=== PATIENT | female | born 1990 | race Caucasian/White ===

== ENCOUNTER 2016-11-05 23:34 | Emergency (ER) | payer OTHER ==
[~2016-11-05 23:34] MED LIST: DOXY100T PO; IBUP600 PO; METH-703 PO; PERC5TAB12 PO
[2016-11-05 23:36] VITALS: BP 139/86; PULSE 98; RESP 18; TEMP 98.4; O2SAT 100
--- NOTE | 2016-11-06 00:16 | PD ---
HPI Chief Complaint Back pain Travel History International Travel<30 Days: No Contact w/Intl Traveler<30Days: No Known Affected Area: No History of Present Illness HPI at 31w presents with c/o back pain. Reports pain in upper mid back, non- radiating. Denies urinary/bowel problems. Denies abdominal pain/contractions. No LOF/VB. Good FM. Denies problems this . Reports an episode of emesis earlier tonight. Denies nausea currently. Tried one dose of Tylenol earlier this evening with some relief. Para: 1 : 3 Last Menstrual Period: Nov 06, 2016 History Past Medical History Medical History: Denies Significant Hx Obstetric History Obstetric History C/S x 1 SAB x 1 Past Surgical History Narrative Surgical C/S x 1 Family History Family History: Negative Social History Alcohol Use: No Tobacco Use: No Substance Abuse: No Allergies-Medications (Allergen,Severity, Reaction): Coded Allergies: Penicillin (Verified Allergy, Unknown, Rash, 03/04/15) Home Meds Active Scripts Doxycycline Hyclate 100 mg 100 Mg [id number] Mg PO BID #14 TAB Ref 0 Prov:Maria Elena Hicks MD 03/05/15 Methylergonovine Maleate (Methergine)0.2 Mg Tab0.2 Mg PO TID #9 TAB Ref 0 Prov:Maria Elena Hicks MD 03/05/15 Ibuprofen (Motrin 600 Mg Tab)600 Mg Vit493 Mg PO Q6H PRN (cramps) #28 TAB Ref 1 Prov:Maria Elena Hicks MD 03/05/15 Oxycodone-Acetaminophen 5-325 mg (Percocet 5-325 mg)Oxycodone 5/325 Acetaminophen Tab1-2 Tab PO Q4H PRN (PAIN) #20 TAB Prov:Cindy Grimm MD 03/04/15 Review of Systems Except as stated in HPI: all other systems reviewed are Neg Physical Exam Vital Signs Date Time Temp Pulse Resp B/P Pulse Ox O2 Delivery O2 Flow Rate FiO2 11/05/16 23:36 98.4 98 18 139/86 100 Narrative GENERAL: Well-nourished, well-developed patient. SKIN: Warm and dry. HEAD: Normocephalic and atraumatic. EYES: No scleral icterus. No injection or drainage. ENT: No nasal drainage noted. Mucous membranes pink. Airway patent. NECK: Supple, trachea midline. No JVD. CARDIOVASCULAR: Regular rate and rhythm without murmurs, gallops, or rubs. RESPIRATORY: Breath sounds equal bilaterally. No accessory muscle use. BREASTS: Bilateral exam showed no masses , no retractions, no nipple discharge. ABDOMEN/GI: Abdomen soft, non-tender, bowel sounds present, no rebound, no guarding Gravid to [-] weeks size Fundal Height: [-] GENITOURINARY: External Genitalia: intact and normal in appearance BUS glands: [-] Cervix: [-] Dilatation: [0] Effacement: [0] Station: [-3] Presentation: [-] Membranes: [intact or ruptured] Uterine Contractions: [none] FHT's: Category: [1] Baseline: [130s] Reactive: [yes] Variability: [moderate] Decels: [none] EXTREMITIES: No cyanosis or edema. BACK: Nontender without obvious deformity. No CVA tenderness. NEUROLOGICAL: Awake and alert. Motor and sensory grossly within normal limits. Five out of 5 muscle strength in all muscle groups. Normal speech. Data Data Vital Signs Reviewed: Yes Labs Laboratory Tests Test 11/06/16 00:10 Urine Color YELLOW Urine Turbidity HAZY Urine pH 8.0 Urine Specific [place] 1.014 Urine Protein TRACE mg/dL Urine Glucose (UA) NEG mg/dL Urine Ketones NEG mg/dL Urine Occult Blood NEG Urine Nitrite NEG Urine Bilirubin NEG Urine Urobilinogen 2.0 MG/DL Urine Leukocyte Esterase SMALL Urine RBC 2 /hpf Urine WBC 8 /hpf Urine Squamous Epithelial 10 /hpf Cells Urine Renal Epithelial Cells <1 /hpf Urine Amorphous Sediment RARE Urine Bacteria MANY /hpf Urine Hyaline Casts 1 /lpf Urine Mucus FEW /lpf Microscopic Urinalysis Comment CULTURE INDICATED MDM Interpretation(s) IUP at 31w with back pain. D/w patient Tylenol and supportive therapies. Close f/u with OB provider. Rx for Macrobid. Hydration encouraged. All questions answered. Diagnosis Diagnosis: Primary Impression: 31 weeks gestation of Additional Impressions: Back pain affecting in third trimester UTI (urinary tract infection) Disposition: DISCHARGE HOME Condition: Stable Anaid Zelaya MD Nov 06, 2016 00:16
[2016-11-06 01:16] LABS: BACTERIA, URINE MANY /hpf; BLOOD, URINE NEG (NEG); COMMENT (UR) CULTURE INDICATED; CULTURE IF INDICATED CULTURE INDICATED; GLUCOSE,URINE NEG (NEG); HYALINE CAST, URINE 1 /lpf (RARE); KETONE, URINE NEG (NEG); MUCUS URINE FEW /lpf (OCC); NITRITE,URINE NEG (NEG); RENAL EPITHELIAL CELLS <1 /hpf; SQUAMOUS EPITHELIAL CELL URINE 10 /hpf (0-5); URINE COLOR YELLOW (YELLW/STRAW)
[2016-11-06] MEDS ORDERED: MACR100C2 PO (01:25)
== END 2016-11-06 01:34 | disposition home or self-care (01) ==
LOC: HOBED 23:34
DX: O26.893 Other specified pregnancy related conditions, third trimester (principal); M54.6 Pain in thoracic spine; O23.43 Unspecified infection of urinary tract in pregnancy, third trimester; Z3A.31 31 weeks gestation of pregnancy
CPT/HCPCS: 81001; 87086; 99283

== ENCOUNTER 2016-12-12 11:17 | Inpatient (IN) | payer OTHER ==
[~2016-12-12] VITALS: Ht 165.1 cm; Wt 47.2 kg
[~2016-12-12 11:17] MED LIST changes: +MACR100C2 PO
[2016-12-30] VITALS (9 sets, daily range): BP systolic 112–142; BP diastolic 55–78; PULSE 78–96; RESP 14–18; TEMP 97.6–98.1; O2SAT 99–100
[2016-12-30] MEDS ORDERED: LACTATED RINGER'S 1000 ML INJ 1,000 ML IV ONE (07:09)
[2016-12-30] MEDS ORDERED: OXYTOCIN 10 UNIT/ML AMP ONE (07:15)
[2016-12-30 07:30] LABS: AUTOMATED NEUTROPHIL # 9.6 TH/MM3 (1.8-7.7); BASOPHIL % 0.3 % (0.0-2.0); EOSINOPHIL # 0.2 TH/MM3 (0-0.4); EOSINOPHIL % 1.4 % (0.0-4.0); HEMATOCRIT 35.8 % (35.0-46.0); HEMO FLAGS DIFF FINAL; LYMPH % 17.4 % (9.0-44.0); LYMPHOCYTE # 2.2 TH/MM3 (1.0-4.8); MEAN CORPUSCULAR HEMOGLOBIN 27.2 PG (27.0-34.0); MEAN CORPUSCULAR HGB CONC 33.6 % (32.0-36.0); MONO % 5.1 % (0.0-8.0); NEUT % 75.8 % (16.0-70.0); PLATELET COUNT 195 TH/MM3 (150-450); RED BLOOD COUNT 4.42 MIL/MM3 (4.00-5.30); WHITE BLOOD COUNT 12.7 TH/MM3 (4.0-11.0)
[2016-12-30] MEDS ORDERED: LACTATED RINGER'S 1000 ML INJ 1,000 ML IV SCH ×2 (07:39→14:00)
[2016-12-30 07:53] LABS: BACTERIA, URINE FEW /hpf; BLOOD, URINE MOD (NEG); COMMENT (UR) CULTURE INDICATED; CULTURE IF INDICATED CULTURE INDICATED; GLUCOSE,URINE NEG (NEG); HYALINE CAST, URINE 7 /lpf (RARE); KETONE, URINE NEG (NEG); MUCUS URINE FEW /lpf (OCC); NITRITE,URINE NEG (NEG); PH, URINE 6.5 (5.0-8.5); SQUAMOUS EPITHELIAL CELL URINE 40 /hpf (0-5); URINE COLOR YELLOW (YELLW/STRAW)
--- NOTE | 2016-12-30 08:02 | HHI.HP ---
HPI Chief Complaint repeat cd Date Seen: Dec 30, 2016 Travel History International Travel<30 Days: No Contact w/Intl Traveler<30Days: No Known Affected Area: No History of Present Illness HPI 26 yo with iup at 39 w 2 d here for elective repeat cd. + FM, irreg ctx , neg vb/lof. Prior cd for PROM, arrest of dilation; baby with possible gbs sepsis. Para: 1 : 1 Miscarriage: 1 History Past Medical History Narrative Medical denies Medical History: Denies Significant Hx Obstetric History Obstetric History 2011 CD at 39 wk for arrest, dilated to 2 cm 2014 MAB 13 wk Past Surgical History Narrative Surgical D&C LSC for [place], possible endo CD Family History Narrative Family History FOB spina bifida Social History Alcohol Use: No Tobacco Use: No (use prior to ) Substance Abuse: No Allergies-Medications (Allergen,Severity, Reaction): Coded Allergies: Penicillin (Verified Allergy, Unknown, Rash, 03/04/15) Retin-A (Verified Allergy, Unknown, swelling, 12/19/16) Home Meds Active Scripts Nitrofurantoin Monohydrate Macrocrystals (Macrobid)100 Mg [id number] Mg PO BID 7 Days Ref 0 Prov:Anaid Zelaya MD 11/06/16 Doxycycline Hyclate 100 mg 100 Mg Pmr000 Mg PO BID #14 TAB Ref 0 Prov:Maria Elena Hicks MD 03/05/15 Methylergonovine Maleate (Methergine)0.2 Mg Tab0.2 Mg PO TID #9 TAB Ref 0 Prov:Maria Elena Hicks MD 03/05/15 Ibuprofen (Motrin 600 Mg Tab)600 Mg Iih084 Mg PO Q6H PRN (cramps) #28 TAB Ref 1 Prov:Maria Elena Hicks MD 03/05/15 Oxycodone-Acetaminophen 5-325 mg (Percocet 5-325 mg)Oxycodone 5/325 Acetaminophen Tab1-2 Tab PO Q4H PRN (PAIN) #20 TAB Prov:Cindy Grimm MD 03/04/15 Review of Systems General / Constitutional: No: Fever, Weight Gain, Chills, Other Eyes: No: Diploplia, Blurred Vision, Visual changes, Pain, Photophobia HENT: No: Headaches, Vertigo, Lightheadedness Cardiovascular: No: Irregular Rhythm, Chest Pain or Discomfort, Palpitations, Tachycardia, Syncope, Varicosities, Edema, Cyanosis Respiratory: No: Cough, Short of Breath, Other Gastrointestinal: No: Nausea, Vomiting, Diarrhea Genitourinary: No: Decreased Urinary Output, Oliguria Musculoskeletal: No: Limited ROM, Weakness, Cramping, Edema, Pain Skin: No Rash, No Itching, No Dryness, No Lumps, No Change in Pigmentation, No Change in Nails, No Alopecia, No Lesions Neurologic: No: Weakness, Dizziness, Syncope, Focal Abnormalities, Coordination Problem, Headache, Slurred Speech, Seizures Psychiatric: No: Depression, Suicidal Ideations, Homicidal Ideation Endocrine: No: Heat Intolerance, Cold Intolerance, Polydipsia, Polyuria, Other Physical Exam Narrative GENERAL: Well-nourished, well-developed patient. SKIN: Warm and dry. HEAD: Normocephalic and atraumatic. EYES: No scleral icterus. No injection or drainage. ENT: No nasal drainage noted. Mucous membranes pink. Airway patent. NECK: Supple, trachea midline. No JVD. CARDIOVASCULAR: Regular rate and rhythm without murmurs, gallops, or rubs. RESPIRATORY: Breath sounds equal bilaterally. No accessory muscle use. ABDOMEN/GI: Abdomen soft, non-tender, bowel sounds present, no rebound, no guarding Gravid to40 weeks size Fundal Height: [-] GENITOURINARY: External Genitalia: intact and normal in appearance BUS glands: [-] Cervix:/hi Presentation:ceph Membranes: [intact Uterine Contractions: [-] FHT's: Category:I Decels: [-] EXTREMITIES: No cyanosis or edema. BACK: Nontender without obvious deformity. No CVA tenderness. NEUROLOGICAL: Awake and alert. Motor and sensory grossly within normal limits. Five out of 5 muscle strength in all muscle groups. Normal speech. Data Data Vital Signs Reviewed: Yes Orders Admit To Inpatient (12/30/16 ) Vital Signs (Adult) .ON ADMISSION (12/30/16 07:09) Activity Oob Ad Christen (12/30/16 07:09) Heart (12/30/16 07:09) Urinary Catheter Management TITO.Q8H (12/30/16 07:09) ^ Preps (12/30/16 07:09) Scd / Scott / Foot Pump TITO.QSHIFT (12/30/16 07:09) ^ Ultrasound For Locatio (12/30/16 07:09) Diet Npo (12/30/16 Breakfast) Lactated Ringer's 1000 Ml Inj (Lr 1000 M (12/30/16 07:09) Lactated Ringer's 1000 Ml Inj (Lr 1000 M (12/30/16 07:39) Cefazolin 2 Gm Premix (Ancef 2 Gm Premix (12/30/16 08:15) Citric Acid-Sodium Citrate Liq (Bicitra (12/30/16 08:45) Type And Screen (12/30/16 07:09) Complete Blood Count With Diff (12/30/16 07:09) Urinalysis - C+S If Indicated (12/30/16 07:09) Inpatient Certification (12/30/16 ) Specimen To Be Collected PRN (12/30/16 07:09) Oxytocin Inj (Pitocin Inj) (12/30/16 07:15) Labs Laboratory Tests Test 12/30/16 06:46 White Blood Count 12.7 Red Blood Count 4.42 Hemoglobin 12.0 Hematocrit 35.8 Mean Corpuscular Volume 81.0 Mean Corpuscular Hemoglobin 27.2 Mean Corpuscular Hemoglobin 33.6 Concent Red Cell Distribution Width 16.0 Platelet Count 195 Mean Platelet Volume 9.6 Neutrophils (%) (Auto) 75.8 Lymphocytes (%) (Auto) 17.4 Monocytes (%) (Auto) 5.1 Eosinophils (%) (Auto) 1.4 Basophils (%) (Auto) 0.3 Neutrophils # (Auto) 9.6 Lymphocytes # (Auto) 2.2 Monocytes # (Auto) 0.7 Eosinophils # (Auto) 0.2 Basophils # (Auto) 0.0 CBC Comment DIFF FINAL Differential Comment Assessment/Plan Problem List: (1) History of delivery Assessment and Plan 26 yo with iup 39w2d here for elective repeat cd RH neg- rhogam eval FOB with spina bifida- nl anatomy, msafp abn 1 hr- nl 3 hour GBS neg TMJ pain Etta Cam MD Dec 30, 2016 08:02
[2016-12-30] MEDS ORDERED: ceFAZolin 2 GM PREMIX 50 ML IV SCH (08:15)
[2016-12-30] MEDS ORDERED: CITRIC ACID-SODIUM CITRATE LIQ 30 ML UDC PO SCH (08:45)
--- NOTE | 2016-12-30 09:06 | HHI.DCPOC ---
Discharge Care Plan Diagnosis: (1) History of delivery Your Health Problems Are: delivery Report Symptoms to Your Doctor -Temperature above 100.5 degrees -Redness, of incision or excessive or foul smelling drainage -Unusual pain or calf pain -Increased vaginal bleeding -Painful or difficulty urinating -Feelings of extreme sadness or anxiety after 2 weeks Goals to Promote Your Health * To prevent worsening of your condition and complications * To maintain your health at the optimal level Directions to Meet Your Goals Take your medications as prescribed Follow your dietary instruction Follow activity as directed Ensure plenty of rest for recovery Drink fluids for hydration Keep your appointments as scheduled Take your immunizations and boosters as scheduled If your symptoms worsen call your PCP, if no PCP go to Urgent Care Center or Emergency Room Smoking is Dangerous to Your Health. Avoid second hand smoke Call the 24-hour crisis hotline for domestic abuse at Etta Cam MD Dec 30, 2016 09:05
--- NOTE | 2016-12-30 09:09 | PD.OB.DELI ---
Procedure Note Section Procedure Pre Op Diagnosis: (1) History of delivery (2) Rh negative status during (3) Abnormal glucose tolerance in mother complicating Post Op Diagnosis: (1) History of delivery (2) Rh negative status during (3) Abnormal glucose tolerance in mother complicating (4) Pelvic adhesive disease Performed by Etta Cam Procedure: Repeat Low Transverse Sec (lysis of adhesions) Indication for delivery: Desired elective repeat Informed consent obtained: For anesthesia, For procedure Confirmed correct: Patient, Procedure, Site, Time-out taken Anesthesia: Spinal Medication prior to procedure: As documented in eMAR, Antacids, Antibiotics, IV Monitoring during procedure: Blood pressure monitoring, Pulse oximetry Urinary catheter: Inserted using sterile technique, To dependent drainage, ml urine output (100) Sterile preparation: Duraprep, With drapes to expose affected area Position: Supine with wedge to right side, Supine with safety belt applied Operative Features Skin Incision: Pfannenstiel Uterine Incision: Low transverse w/knife / blunt ext Membranes Ruptured: Artificially, Appearance of fluid (clear) Presentation: Occiput anterior Delivery of infant: Uneventful Infant: Male One Minute : 8 Five Minute : 8 Weight: pending Status of : Viable, Cord blood, Nursery present (cpap required, baby taken to nicu) Placenta delivered: Intact Medications: Antibiotics, Oxytocin Estimated blood loss: 500ml Procedure tolerated: Well Maternal Condition: Stable Baby Complications: Hypoxia Condition: Fair Procedure in detail see dictation Etta Cam MD Dec 30, 2016 09:09
[2016-12-30] MEDS ORDERED: ONDANSETRON HCL 4 MG/2 ML VIAL IV PUSH PRN (09:15)
[2016-12-30] MEDS ORDERED: ONDANSETRON HCL 4 MG/2 ML VIAL ONE (09:15)
[2016-12-30] MEDS ORDERED: SODIUM CHLORIDE 0.9% FLUSH 10 ML FLUSH IV FLUSH PRN (09:15)
[2016-12-30] MEDS ORDERED: ACETAMINOPHEN 325 MG TAB PO PRN (09:15)
[2016-12-30] MEDS ORDERED: OXYTOCIN 30 UNITS-500ML PREMIX 500 ML IV ONE (09:15)
[2016-12-30] MEDS ORDERED: ACETAMINOPHEN 1000 MG/100 ML VIAL IV ONE ×2 (09:15→09:34)
[2016-12-30] MEDS ORDERED: oxyCODONE/ACETAMINOPHEN 5 MG/325 MG TAB PO PRN (09:15)
[2016-12-30] MEDS ORDERED: MORPHINE SULFATE PF 5 MG/10 ML VIAL ONE (09:15)
[2016-12-30] MEDS ORDERED: *Lactated Ringer's INJ 1,000 ML IV ONE (09:29)
[2016-12-30] MEDS ORDERED: OXYTOCIN 30 UNITS-500ML PREMIX 500 ML ONE (09:34)
[2016-12-30] MEDS ORDERED: EPIDURAL-DIPHENHYDRAMINE HCL 50 MG/ML VIAL IV PUSH PRN (11:15)
[2016-12-30] MEDS ORDERED: EPIDURAL-NO SYSTEMIC NARCOTICS PRN (11:15)
[2016-12-30] MEDS ORDERED: EPIDURAL-DO NOT ADMINISTER ANTICOAGULANTS PRN (11:15)
[2016-12-30] MEDS ORDERED: EPIDURAL-DIPHENHYDRAMINE HCL 50 MG CAP PO PRN (11:15)
[2016-12-30] MEDS ORDERED: EPIDURAL-NALOXONE HCL 0.4 MG/ML AMP IV PRN (11:15)
[2016-12-30] MEDS: IBUPROFEN 600 MG TAB PO PRN (14:19)
[2016-12-30] MEDS: oxyCODONE/ACETAMINOPHEN 5 MG/325 MG TAB PO PRN (17:55)
[2016-12-30] MEDS ORDERED: OXYTOCIN 30 UNITS-500ML PREMIX 500 ML IV PRN (19:15)
[2016-12-30] MEDS ORDERED: SODIUM CHLORIDE 0.9% FLUSH 10 ML FLUSH IV FLUSH SCH (21:00)
[2016-12-31 02:10] VITALS: BP 88/59; PULSE 84; RESP 18; TEMP 97.8
[2016-12-31] MEDS: oxyCODONE/ACETAMINOPHEN 5 MG/325 MG TAB PO PRN ×3 (02:13→20:41)
[2016-12-31] MEDS: IBUPROFEN 600 MG TAB PO PRN ×4 (02:14→20:42)
[2016-12-31 06:00] VITALS: BP 106/79; PULSE 96; RESP 18; TEMP 97.7
[2016-12-31] MEDS: SIMETHICONE 80 MG CHEWABLE TAB PO PRN ×2 (06:02→18:19)
[2016-12-31 06:43] LABS: AUTOMATED NEUTROPHIL # 11.3 TH/MM3 (1.8-7.7); BASOPHIL % 0.3 % (0.0-2.0); EOSINOPHIL # 0.1 TH/MM3 (0-0.4); EOSINOPHIL % 0.7 % (0.0-4.0); HEMATOCRIT 31.7 % (35.0-46.0); HEMO FLAGS DIFF FINAL; LYMPHOCYTE # 3.2 TH/MM3 (1.0-4.8); MEAN CORPUSCULAR HGB CONC 33.3 % (32.0-36.0); MONO % 4.8 % (0.0-8.0); NEUT % 73.2 % (16.0-70.0); PLATELET COUNT 207 TH/MM3 (150-450); RED BLOOD COUNT 3.92 MIL/MM3 (4.00-5.30); WHITE BLOOD COUNT 15.4 TH/MM3 (4.0-11.0)
[2016-12-31 08:10] VITALS: BP 114/76; PULSE 90; RESP 18; TEMP 97.9
[2016-12-31] MEDS: DOCUSATE SODIUM 50 MG/SENNA 8.6 MG TAB PO PRN ×2 (08:24→20:39)
--- NOTE | 2016-12-31 08:34 | HHI.OB ---
Subjective Post Operative Day: 1 Remarks doing well post op day 1 ambulating Objective Vitals/I&O Vital Signs Date Time Temp Pulse Resp B/P Pulse Ox O2 Delivery O2 Flow Rate FiO2 12/31/16 06:00 97.7 96 18 106/79 12/31/16 02:10 97.8 84 18 88/59 12/30/16 20:05 97.8 96 18 114/76 12/30/16 15:10 95 16 128/78 12/30/16 15:10 98.1 12/30/16 11:10 97.6 78 18 142/76 12/30/16 10:00 16 100 12/30/16 10:00 84 118/59 12/30/16 09:57 97.8 12/30/16 09:55 99 12/30/16 09:55 80 14 12/30/16 09:45 116/55 12/30/16 09:30 81 16 112/58 100 12/30/16 09:16 97.9 84 15 112/61 12/30/16 09:16 99 Result Diagram: 12/31/16 0615 Objective Remarks GENERAL: Well-nourished, well-developed patient. CARDIOVASCULAR: Regular rate and rhythm without murmurs, gallops, or rubs. RESPIRATORY: Breath sounds equal bilaterally. No accessory muscle use. ABDOMEN/GI: Abdomen soft, non-tender, bowel sounds present. Incision: Clean, dry and intact. Fundus: Firm, non-tender at umbilicus. GENITOURINARY: Light to moderate bleeding. EXTREMITIES: No cyanosis or edema, non-tender, without signs of DVT. Medications and IVs Current Medications Medications (Trade) Dose Ordered Sig/Mila Route Start Time Stop Time Status Last Admin (Lr 1000 ml Inj) 1,000 ml @ 100 mls/hr Q10H IV 12/30/16 14:00 12/31/16 09:59 (NS Flush) 2 ml BID IV FLUSH 12/30/16 21:00 (NS Flush) 2 ml UNSCH PRN IV FLUSH 12/30/16 09:15 (Mylicon Chew) 80 mg QID PRN PO 12/30/16 09:15 12/31/16 06:02 (Tylenol) 650 mg Q6H PRN PO 12/30/16 09:15 (Motrin) 600 mg Q6H PRN PO 12/30/16 09:15 12/31/16 08:24 (Percocet 5-325 Mg) 1 tab Q4H PRN PO 12/30/16 09:15 (Percocet 5-325 Mg) 2 tab Q4H PRN PO 12/30/16 09:15 12/31/16 08:23 (Nolvia-Colace) 2 tab Q12H PRN PO 12/30/16 09:15 12/31/16 08:24 (M-M-R Ii Inj) 0.5 ml ONCE ONCE SQ 12/31/16 16:00 12/31/16 16:01 (Boostrix Inj) 0.5 ml ONCE ONCE IM 12/31/16 16:00 12/31/16 16:01 (Zofran Inj) 4 mg Q6H PRN IV PUSH 12/30/16 09:15 Miscellaneous Information NO SYSTEMIC NARCOTICS TO BE GIVEN FO... UNSCH PRN .XX 12/30/16 11:15 12/31/16 11:14 (Narcan Inj) 0.4 mg UNSCH PRN IV 12/30/16 11:15 12/31/16 11:14 (Benadryl Inj) 25 mg Q6H PRN IV PUSH 12/30/16 11:15 12/31/16 11:14 (Benadryl) 50 mg Q6H PRN PO 12/30/16 11:15 12/31/16 11:14 Miscellaneous Information ALL NURSING DEPARTMENTS UNSCH PRN .XX 12/30/16 11:15 12/31/16 11:14 Assessment/Plan Problem List: (1) History of delivery Assessment and Plan unremarkable POD 1 nursing Rh - Janki Shearer MD Dec 31, 2016 08:34
[2016-12-31] MEDS ORDERED: diphenhydrAMINE HCL 50 MG CAP PO PRN (14:15)
[2016-12-31] MEDS ORDERED: MEASLES, MUMPS, RUBELLA VACCINE 0.5 ML VIAL SQ ONE (16:00)
[2016-12-31] MEDS ORDERED: DIPHTH/TETANUS/ACEL PERTUSSIS (BOOSTER) 0.5 ML VIAL/PFS IM ONE (16:00)
[2016-12-31 20:25] VITALS: BP 109/71; PULSE 81; RESP 18; TEMP 98.8
[2017-01-01] MEDS: IBUPROFEN 600 MG TAB PO PRN ×3 (05:09→17:21)
[2017-01-01] MEDS: SIMETHICONE 80 MG CHEWABLE TAB PO PRN (05:10)
[2017-01-01] MEDS: oxyCODONE/ACETAMINOPHEN 5 MG/325 MG TAB PO PRN ×4 (05:10→20:23)
[2017-01-01 07:20] VITALS: BP 133/80; PULSE 98; RESP 20; TEMP 98
--- NOTE | 2017-01-01 07:47 | HHI.OB ---
Subjective Post Operative Day: 2 Remarks POD#2; stable, pain managed with percocet Objective Vitals/I&O Vital Signs Date Time Temp Pulse Resp B/P Pulse Ox O2 Delivery O2 Flow Rate FiO2 01/01/17 06:09 20 01/01/17 06:09 20 12/31/16 20:25 98.8 81 18 109/71 12/31/16 08:10 97.9 90 18 114/76 Result Diagram: 12/31/16 0615 Objective Remarks GENERAL: Well-nourished, well-developed patient. CARDIOVASCULAR: Regular rate and rhythm without murmurs, gallops, or rubs. RESPIRATORY: Breath sounds equal bilaterally. No accessory muscle use. ABDOMEN/GI: Abdomen soft, non-tender, bowel sounds present. Incision: Clean, dry and intact. Fundus: Firm, non-tender at umbilicus. GENITOURINARY: Light to moderate bleeding. EXTREMITIES: No cyanosis or edema, non-tender, without signs of DVT. Medications and IVs Current Medications Medications (Trade) Dose Ordered Sig/Mila Route Start Time Stop Time Status Last Admin (NS Flush) 2 ml BID IV FLUSH 12/30/16 21:00 (NS Flush) 2 ml UNSCH PRN IV FLUSH 12/30/16 09:15 (Mylicon Chew) 80 mg QID PRN PO 12/30/16 09:15 01/01/17 05:10 (Tylenol) 650 mg Q6H PRN PO 12/30/16 09:15 (Motrin) 600 mg Q6H PRN PO 12/30/16 09:15 01/01/17 05:09 (Percocet 5-325 Mg) 1 tab Q4H PRN PO 12/30/16 09:15 12/31/16 14:39 (Percocet 5-325 Mg) 2 tab Q4H PRN PO 12/30/16 09:15 01/01/17 05:10 (Nolvia-Colace) 2 tab Q12H PRN PO 12/30/16 09:15 12/31/16 20:39 (Zofran Inj) 4 mg Q6H PRN IV PUSH 12/30/16 09:15 (Benadryl) 50 mg Q4H PRN PO 12/31/16 14:15 12/31/16 14:39 Assessment/Plan Problem List: (1) History of delivery Assessment and Plan unremarkable POD 2 Stable, bottle feeding, anticipate discharge for AM [facility] - Attending Attestation Seen by Golden Hercules MD Jan 01, 2017 07:47
--- NOTE | 2017-01-01 10:22 | MP ---
cc: ETTA CAM MD DATE OF SURGERY 12/30/2016 PREOPERATIVE DIAGNOSIS History of delivery, Rh negative, abnormal glucose tolerance. DIAGNOSIS History of delivery, Rh negative, abnormal glucose tolerance, plus pelvic adhesive disease. SURGEON Etta Cam MD HEALTH INFORMATION ASSISTANT [place] staff PROCEDURE PERFORMED Repeat low transverse section and lysis of adhesions. INDICATION The patient is a 26-year-old G3, P 1-0-1-1 with an intrauterine at 39 weeks and two days who desires elective repeat delivery. Her prior was due to the problem of failure to dilate and that had a prolonged stay in the NICU for GBS sepsis. The risks, benefits and alternatives discussed with the patient. Given an opportunity to have , but declined. ANESTHESIA Spinal ANTIBIOTICS Ancef 2 grams IV given pre-incision. PROPHYLAXIS DVT prophylaxis SCD's bilateral extremities COMPLICATIONS None COUNTS Correct x3 ESTIMATED BLOOD LOSS 500 mL URINE OUTPUT 100 mL of clear yellow urine INTRAOPERATIVE FINDINGS Viable male infant 's of 8 and 8. nursery team present for delivery, had a required C-PAP and was to taken to taken to the NICU for decreased oxygen saturation, weight pending. Maternal findings, normal uterus and bilateral ovaries. Left tube within normal limits. Right tube some filmy adhesions between the ovary and the fallopian tube. Filmy adhesions on the anterior aspect of the uterus to the bladder. Omental wall adhesions to the anterior abdominal wall. Scarring of the fascia to the rectus muscles. Scarring of the subcutaneous tissue. Placenta was delivered intact and handed to the placenta donation program. PROCEDURE IN DETAIL After she gave informed consent, the patient was taken to operating room where spinal anesthesia was administered without complication. She was placed in the dorsal supine position with a slight leftward tilt. The Chavez was placed under sterile conditions. SCD's were placed. The abdomen was prepped and draped in normal sterile fashion. After anesthesia was confirmed to be adequate, a Pfannenstiel skin incision was made at her prior incision site with a scalpel and taken down to the underlying layer of fascia with the Bovie. There was some scarring of the subcutaneous tissue and fascia. The fascia was dissected in the midline with the Bovie. The incision was extended bilaterally with Porter scissors. The superior aspect of the fascia was grasped with Vanda clamps. The rectus muscles were from the fascia with the aid of Porter scissors, the Bovie and bluntly. The same was repeated inferiorly. The rectus muscles were in the midline with hemostats. The peritoneum and some of the omentum were adhesed to the anterior abdominal wall. There was a loop of omentum in the operative field. This was double clamped, suture ligated and transected with the Bovie to free the omentum. There were several layers of filmy adhesions on the uterus, these were taken down with Metzenbaum scissors. The bladder blade was then inserted. A bladder flap was created with Metzenbaum scissors. The uterus was incised in a transverse fashion with a scalpel. This incision was extended bluntly. The amnion was artificially ruptured, the head was flexed and the large amount of amniotic fluid. Fundal pressure was used to deliver the head. The rest of body readily followed. The baby was bulb suctioned and cord was doubly clamped and cut. The baby was handed off to the awaiting pediatricians. Immediate infusion of Pitocin was started. The placenta was delivered using gentle uterine massage and cord traction. Membranes, clots and debris were cleared from the uterus with moist laparotomy sponges after the uterus was exteriorized. The uterus was repaired in two layers, first with a #1 chromic in a running locked fashion. The second layer was an imbricating layer. The uterus was noted to be hemostatic. The posterior cul-de-sac was irrigated and suctioned. A few adhesions of the right tube and ovary were taken down with a Bovie. These were noted To be hemostatic. The uterus was returned to the abdomen. The anterior cul-de-sac was irrigated and suctioned. There was no clear peritoneal edge to reapproximate as the omentum was scarred to it laterally. There was a small bleeding vessel on the left rectus muscles. A [id number] with 2-0 chromic was used to ensure hemostasis. The fascia was then closed with #1 Vicryl in a running fashion. The subcutaneous tissue was irrigated and hemostasis was obtained with the Bovie. The subcutaneous layer was closed with 2-0 chromic in a running fashion. Skin was closed with 3-0 Monocryl in a subcuticular fashion. A sterile dressing was placed. The patient tolerated the procedure well. Baby was taken to the NICU. Etta Cam MD PE/LIANG /9:10 AM 10:01 AM
[2017-01-02] MEDS: IBUPROFEN 600 MG TAB PO PRN ×2 (00:37→06:31)
[2017-01-02] MEDS: oxyCODONE/ACETAMINOPHEN 5 MG/325 MG TAB PO PRN ×2 (00:37→06:32)
--- NOTE | 2017-01-02 08:01 | HHI.OB ---
Subjective Post Operative Day: 3 Remarks no complaints, bottlefeeding Objective Vitals/I&O vss afeb Result Diagram: 12/31/16 0615 Objective Remarks GENERAL: Well-nourished, well-developed patient. CARDIOVASCULAR: Regular rate and rhythm without murmurs, gallops, or rubs. RESPIRATORY: Breath sounds equal bilaterally. No accessory muscle use. ABDOMEN/GI: Abdomen soft, non-tender, bowel sounds present. Incision: Clean, dry and intact. Fundus: Firm, non-tender at umbilicus. GENITOURINARY: Light to moderate bleeding. EXTREMITIES: No cyanosis, some edema, non-tender, without signs of DVT. Medications and IVs Current Medications Medications (Trade) Dose Ordered Sig/Mila Route Start Time Stop Time Status Last Admin (NS Flush) 2 ml BID IV FLUSH 12/30/16 21:00 (NS Flush) 2 ml UNSCH PRN IV FLUSH 12/30/16 09:15 (Mylicon Chew) 80 mg QID PRN PO 12/30/16 09:15 01/01/17 05:10 (Tylenol) 650 mg Q6H PRN PO 12/30/16 09:15 (Motrin) 600 mg Q6H PRN PO 12/30/16 09:15 01/02/17 06:31 (Percocet 5-325 Mg) 1 tab Q4H PRN PO 12/30/16 09:15 12/31/16 14:39 (Percocet 5-325 Mg) 2 tab Q4H PRN PO 12/30/16 09:15 01/02/17 06:32 (Nolvia-Colace) 2 tab Q12H PRN PO 12/30/16 09:15 12/31/16 20:39 (Zofran Inj) 4 mg Q6H PRN IV PUSH 12/30/16 09:15 (Benadryl) 50 mg Q4H PRN PO 12/31/16 14:15 12/31/16 14:39 Assessment/Plan Problem List: (1) History of delivery Assessment and Plan unremarkable POD 3 Stable, bottle feeding, anticipate discharge for today Rh - Discharge Planning routine Attending Attestation pt seen by Milana Hannah MD Jan 02, 2017 08:00
[2017-01-02] MEDS ORDERED: OXYC1TAB63 PO (08:03)
[2017-01-02] MEDS ORDERED: IBUP-232 PO (08:03)
== END 2017-01-02 11:06 | disposition home or self-care (01) | DRG 766 ==
LOC: H2EB 12-30 05:59 → H1EA 12-30 08:13
PROVIDERS: ADMIT Obstetrics & Gynecology; ATTEND Obstetrics & Gynecology
PROC: 10D00Z1 Extraction of Products of Conception, Low, Open Approach (ICD-10-PCS; principal; 2016-12-30)
PROC: 0DNS0ZZ (ICD-10-PCS; 2016-12-30)
DX: O34.219 Maternal care for unspecified type scar from previous cesarean delivery (principal); O99.810 Abnormal glucose complicating pregnancy; N73.6 Female pelvic peritoneal adhesions (postinfective); R73.02 Impaired glucose tolerance (oral); O99.89 Other specified diseases and conditions complicating pregnancy, childbirth and the puerperium; O26.893 Other specified pregnancy related conditions, third trimester; Z67.91 Unspecified blood type, Rh negative; Z3A.39 39 weeks gestation of pregnancy; Z37.0 Single live birth
CPT/HCPCS: 59025; 81001; 85025; 85461; 86850; 86900; 86901; 87086; 90384; 90715; J0131; J0690; J2274; J2405; J2590; J2790; J7120; Q0163

== ENCOUNTER 2016-12-19 09:28 | Emergency (ER) | payer OTHER ==
[~2016-12-19] VITALS: Ht 165.1 cm; Wt 102.5 kg
--- NOTE | 2016-12-19 10:15 | PD ---
HPI Chief Complaint Possibly leaking fluid per vagina, and sari the last 3 days Date Seen: Dec 19, 2016 Travel History International Travel<30 Days: No Contact w/Intl Traveler<30Days: No Known Affected Area: No History of Present Illness HPI The patient is 26-year-old white female previous at [address] Cam for care. She presents combining of leakage of fluid and her amnio sure is negative today. She is sari every 3-4 minutes and has been for the last 3 days. 2 heart rate tracing is reactive and contractions are noted on the monitor. Para: 1 : 3 History Obstetric History Obstetric History 1 Past Surgical History Narrative Surgical 1 Social History Alcohol Use: No Tobacco Use: No Substance Abuse: No Allergies-Medications (Allergen,Severity, Reaction): Coded Allergies: Penicillin (Verified Allergy, Unknown, Rash, 03/04/15) Home Meds Active Scripts Nitrofurantoin Monohydrate Macrocrystals (Macrobid)100 Mg [id number] Mg PO BID 7 Days Ref 0 Prov:Anaid Zelaya MD 11/06/16 Doxycycline Hyclate 100 mg 100 Mg Geq535 Mg PO BID #14 TAB Ref 0 Prov:Maria Elena Hicks MD 03/05/15 Methylergonovine Maleate (Methergine)0.2 Mg Tab0.2 Mg PO TID #9 TAB Ref 0 Prov:Maria Elena Hicks MD 03/05/15 Ibuprofen (Motrin 600 Mg Tab)600 Mg Tbl130 Mg PO Q6H PRN (cramps) #28 TAB Ref 1 Prov:Maria Elena Hicks MD 03/05/15 Oxycodone-Acetaminophen 5-325 mg (Percocet 5-325 mg)Oxycodone 5/325 Acetaminophen Tab1-2 Tab PO Q4H PRN (PAIN) #20 TAB Prov:Cindy Grimm MD 03/04/15 Review of Systems General / Constitutional: No: Fever, Weight Gain, Chills, Other Eyes: No: Diploplia, Blurred Vision, Visual changes, Pain, Photophobia HENT: No: Headaches, Vertigo, Lightheadedness Cardiovascular: No: Irregular Rhythm, Chest Pain or Discomfort, Palpitations, Tachycardia, Syncope, Varicosities, Edema, Cyanosis Respiratory: No: Cough, Short of Breath, Other Gastrointestinal: No: Nausea, Vomiting, Diarrhea Genitourinary: No: Decreased Urinary Output, Oliguria Musculoskeletal: No: Limited ROM, Weakness, Cramping, Edema, Pain Skin: No Rash, No Itching, No Dryness, No Lumps, No Change in Pigmentation, No Change in Nails, No Alopecia, No Lesions Neurologic: No: Weakness, Dizziness, Syncope, Focal Abnormalities, Coordination Problem, Headache, Slurred Speech, Seizures Psychiatric: No: Depression, Suicidal Ideations, Homicidal Ideation Endocrine: No: Heat Intolerance, Cold Intolerance, Polydipsia, Polyuria, Other Physical Exam Narrative GENERAL: Well-nourished, well-developed patient. SKIN: Warm and dry. HEAD: Normocephalic and atraumatic. EYES: No scleral icterus. No injection or drainage. ENT: No nasal drainage noted. Mucous membranes pink. Airway patent. NECK: Supple, trachea midline. No JVD. CARDIOVASCULAR: Regular rate and rhythm without murmurs, gallops, or rubs. RESPIRATORY: Breath sounds equal bilaterally. No accessory muscle use. BREASTS: Bilateral exam showed no masses , no retractions, no nipple discharge. ABDOMEN/GI: Abdomen soft, non-tender, bowel sounds present, no rebound, no guarding Gravid to [37-] weeks size Fundal Height: [37-] GENITOURINARY: External Genitalia: intact and normal in appearance BUS glands: [-] Cervix: [Closed-] Dilatation: [Closed-] Effacement: [-] 40% Station: [-3] Presentation: [-vtx] Membranes: [intact ] amnio sure negative Uterine Contractions: [-Every 3-4 minutes] FHT's: Category: [1-] Baseline: [133-] Reactive: [-yes] Variability: [mod-] Decels: [-none] EXTREMITIES: No cyanosis or edema. BACK: Nontender without obvious deformity. No CVA tenderness. NEUROLOGICAL: Awake and alert. Motor and sensory grossly within normal limits. Five out of 5 muscle strength in all muscle groups. Normal speech. Data Data Labs Amnio sure negative MDM Interpretation(s) Patient is 26-year-old white female at 37 weeks previous who sees the [facility] for care. Presents planning of leakage of fluid but her amnio sure was negative, contractions noted every 3-4 minutes but states she feels them is been doing this for 3 days. She was to have a repeat C -section scheduled in the near future. She is scheduled to see her doctor in the morning at 8:30 , heart rate tracing is reactive contractions are noted but her cervix is closed 40% effaced -3 Plan Plan the patient to have increased rest today return for worsening symptoms and otherwise see her doctor in the morning as scheduled Diagnosis Diagnosis: Primary Impression: No leakage of amniotic fluid into vagina Additional Impression: [place] contractions Disposition: DISCHARGE HOME Condition: Stable Kobe Ferrari II, MD Dec 19, 2016 10:15
== END 2016-12-19 10:21 | disposition home or self-care (01) ==
LOC: HOBED 09:28
DX: O47.1 False labor at or after 37 completed weeks of gestation (principal); Z3A.37 37 weeks gestation of pregnancy; Z79.899 Other long term (current) drug therapy; Z88.0 Allergy status to penicillin
CPT/HCPCS: 84112; 99284

== ENCOUNTER 2017-01-21 02:34 | Emergency (ER) | payer OTHER ==
[~2017-01-21 02:34] MED LIST changes: +IBUP-232 PO; +OXYC1TAB63 PO
[2017-01-21 02:40] VITALS: BP 185/87; PULSE 73; RESP 20; TEMP 97.4; O2SAT 99
[2017-01-21 03:00] VITALS: BP 130/81; PULSE 84; RESP 20; TEMP 98.7; O2SAT 100
[2017-01-21 03:25] VITALS: O2SAT 99
--- NOTE | 2017-01-21 03:27 | PD ---
HPI Chief Complaint: Abdominal Pain Time Seen by Provider: 03:05 Travel History International Travel<30 days: No Contact w/Intl Traveler<30days: No Traveled to known affect area: No History of Present Illness HPI 26yo F presents to the ED with c/o right upper abdominal pain that radiates to right scapula and right lower back as well. States it has been intermittent since September but last episode was on Friday. Today at 1:45am, she started having the pain again and vomited her percocet. Denies any fever, chest pain, sob, dysuria, vaginal discharge. Pt had 3 weeks ago. PFSH Past Medical History Hx Anticoagulant Therapy: No Anxiety: Yes Depression: Yes Cardiovascular Problems: No Chemotherapy: No Cerebrovascular Accident: No Diabetes: No Diminished Hearing: No Musculoskeletal: Yes (TMJ) Respiratory: No Immunizations Current: No Influenza Vaccination: No ?: Not LMP: mar 2016 3 weeks post : 3 Para: 2 Miscarriage: 1 Past Surgical History Section: Yes Hysterectomy: No Oral Surgery: Yes (TMJ) Social History Alcohol Use: No Tobacco Use: No Substance Use: No Allergies-Medications (Allergen,Severity, Reaction): Coded Allergies: penicillin G (Unverified Allergy, Unknown, Rash, 01/21/17) tretinoin (Unverified Allergy, Unknown, swelling, 01/21/17) Reported Meds & Prescriptions Reported Meds & Active Scripts Active Zofran Odt (Ondansetron Odt) 4 Mg Tab 4 Mg SL Q12HR PRN Oxycodone-Acetaminophen 5-325 mg Tab 1-2 Tab PO Q6HR PRN Ibuprofen 600 Mg Tab 600 Mg PO Q6H PRN Review of Systems Except as stated in HPI: all other systems reviewed are Neg Physical Exam Narrative GENERAL: 26yo F in mild distress. SKIN: Focused skin assessment warm/dry. HEAD: Atraumatic. Normocephalic. CARDIOVASCULAR: Regular rate and rhythm. No murmur appreciated. RESPIRATORY: No accessory muscle use. Clear to auscultation. Breath sounds equal bilaterally. GASTROINTESTINAL: Abdomen soft, +TTP RUQ. +Otis sign. scar in lower abdomen appears c/d/i. No lower abdominal pain. MUSCULOSKELETAL: No obvious deformities. No clubbing. No cyanosis. No edema. NEUROLOGICAL: Awake and alert. No obvious cranial nerve deficits. Motor grossly within normal limits. Normal speech. PSYCHIATRIC: Appropriate mood and affect; insight and judgment normal. Data Data Last Documented VS Vital Signs Date Time Temp Pulse Resp B/P (MAP) Pulse Ox O2 Delivery O2 Flow Rate FiO2 01/21/17 03:25 99 Room Air 01/21/17 02:40 97.4 73 20 Orders Orders Basic Metabolic Panel (Bmp) (01/21/17 03:23) Complete Blood Count With Diff (01/21/17 03:23) Lipase (01/21/17 03:23) Prothrombin Time / Inr (Pt) (01/21/17 03:23) Act Partial Throm Time (Ptt) (01/21/17 03:23) Urinalysis - C+S If Indicated (01/21/17 03:23) Us Abdomen Gallbladder (01/21/17 ) Iv Access Insert/Monitor (01/21/17 03:23) Ecg Monitoring (01/21/17 03:23) Oximetry (01/21/17 03:23) Sodium Chloride 0.9% Flush (Ns Flush) (01/21/17 03:30) Hepatic Functional Panel (01/21/17 03:23) Ondansetron Inj (Zofran Inj) (01/21/17 03:30) Morphine Inj (Morphine Inj) (01/21/17 03:30) Sodium Chlor 0.9% 1000 Ml Inj (Ns 1000 M (01/21/17 04:45) Labs Laboratory Tests Test 01/21/17 03:20 White Blood Count 10.9 TH/MM3 Red Blood Count 4.75 MIL/MM3 Hemoglobin 12.4 GM/DL Hematocrit 38.7 % Mean Corpuscular Volume 81.4 FL Mean Corpuscular Hemoglobin 26.2 PG Mean Corpuscular Hemoglobin Concent 32.2 % Red Cell Distribution Width 15.3 % Platelet Count 363 TH/MM3 Mean Platelet Volume 9.1 FL Neutrophils (%) (Auto) 58.0 % Lymphocytes (%) (Auto) 34.8 % Monocytes (%) (Auto) 5.0 % Eosinophils (%) (Auto) 1.6 % Basophils (%) (Auto) 0.6 % Neutrophils # (Auto) 6.3 TH/MM3 Lymphocytes # (Auto) 3.8 TH/MM3 Monocytes # (Auto) 0.5 TH/MM3 Eosinophils # (Auto) 0.2 TH/MM3 Basophils # (Auto) 0.1 TH/MM3 CBC Comment DIFF FINAL Differential Comment Prothrombin Time 10.5 SEC Prothromb Time International Ratio 1.0 RATIO Activated Partial Thromboplast Time 25.4 SEC Blood Urea Nitrogen 20 MG/DL Creatinine 0.83 MG/DL Random Glucose 109 MG/DL Total Protein 7.9 GM/DL Albumin 3.7 GM/DL Calcium Level 9.0 MG/DL Alkaline Phosphatase 132 U/L Aspartate Amino Transf (AST/SGOT) 22 U/L Alanine Aminotransferase (ALT/SGPT) 23 U/L Total Bilirubin 0.3 MG/DL Direct Bilirubin 0.1 MG/DL Sodium Level 141 MEQ/L Potassium Level 3.5 MEQ/L Chloride Level 105 MEQ/L Carbon Dioxide Level 24.1 MEQ/L Anion Gap 12 MEQ/L Estimat Glomerular Filtration Rate 84 ML/MIN Indirect Bilirubin 0.2 MG/DL Lipase 159 U/L [facility] Medical Decision Making Medical Screen Exam Complete: Yes Emergency Medical Condition: Yes Differential Diagnosis Acute cholecystitis vs. biliary colic vs. hepatitis Narrative Course 26yo F with recent 3 weeks ago here with right upper abdominal pain. Pt is tender in RUQ only. BP initially elevated but repeat BP is 130/81 when I evaluated her in the room without any interventions. Labs reviewed, no leukocytosis. Normal LFTs. Normal bilirubin. Lipase normal. BUN mildly elevate, pt given NS IVF. US gallbladder showed cholelithiasis. No additional findings are identified to suggest acute cholecystitis. Remainder of exam is within normal limits. Pt has not given urine yet but knows it is her gallbladder and does not want to give a sample at this time. Pt given zofran and morphine. Abdominal pain has resolved as well as nausea. Abdomen is soft, NT/ND. Pt advised to follow up with general surgery for possible elective cholecystectomy. Pt tolerating PO. Pt has percocet so will not give more pain medications. Return precautions given. Diagnosis Primary Impression: Biliary colic Referrals: Lon Obando MD call for appointment Cholelithiasis Patient Instructions: General Instructions Departure Forms: Tests/Procedures Additional Instructions: Please follow up with general surgery as needed for possible elective cholecystectomy if symptoms recur. Return to the ED if symptoms worsen. Med/Other Pt SpecificInfo: Prescription(s) given Scripts Ondansetron Odt (Zofran Odt) 4 Mg Tab 4 MG SL Q12HR Y for Nausea/Vomiting, #7 TAB 0 Refills Prov: Michaela Hatfield DO 01/21/17 Disposition: 01 DISCHARGE HOME Condition: Stable Michaela Hatfield DO Jan 21, 2017 03:27
[2017-01-21] MEDS ORDERED: SODIUM CHLORIDE 0.9% FLUSH 10 ML FLUSH IV FLUSH PRN (03:30)
[2017-01-21] MEDS ORDERED: ONDANSETRON HCL 4 MG/2 ML VIAL IV PUSH ONE (03:30)
[2017-01-21] MEDS ORDERED: MORPHINE SULFATE 4 MG/ML INJ IV PUSH ONE (03:30)
[2017-01-21 03:48] LABS: AUTOMATED NEUTROPHIL # 6.3 TH/MM3 (1.8-7.7); BASOPHIL # 0.1 TH/MM3 (0-0.2); BASOPHIL % 0.6 % (0.0-2.0); EOSINOPHIL # 0.2 TH/MM3 (0-0.4); EOSINOPHIL % 1.6 % (0.0-4.0); HEMATOCRIT 38.7 % (35.0-46.0); HEMO FLAGS DIFF FINAL; LYMPH % 34.8 % (9.0-44.0); LYMPHOCYTE # 3.8 TH/MM3 (1.0-4.8); MEAN CELL VOLUME 81.4 FL (80.0-100.0); MEAN CORPUSCULAR HEMOGLOBIN 26.2 PG (27.0-34.0); MEAN CORPUSCULAR HGB CONC 32.2 % (32.0-36.0); PLATELET COUNT 363 TH/MM3 (150-450); RED BLOOD COUNT 4.75 MIL/MM3 (4.00-5.30); RED CELL DISTRIBUTION WIDTH 15.3 % (11.6-17.2); WHITE BLOOD COUNT 10.9 TH/MM3 (4.0-11.0)
[2017-01-21 04:05] LABS: APTT (PATIENT) 25.4 SEC (24.3-30.1); PROTHROMBIN TIME - PATIENT 10.5 SEC (9.8-11.6)
[2017-01-21 04:15] LABS: BICARBONATE 24.1 MEQ/L (21.0-32.0); POTASSIUM 3.5 MEQ/L (3.5-5.1)
--- NOTE | 2017-01-21 04:17 | RADRPT ---
EXAM DATE/TIME: 01/21/2017 03:42 [facility] COMPARISON: CT ABDOMEN & PELVIS W CONTRAST, June 19, 2014, 22:49. INDICATIONS : Right upper quadrant pain. MEDICAL HISTORY : Depression. Anxiety. . SURGICAL HISTORY : section. TMJ. ENCOUNTER: Initial ACUITY: 4-6 months PAIN SCORE: 6/10 LOCATION: Right upper quadrant MEASUREMENTS: LIVER: 18.5 cm length COMMON DUCT: 5 mm RIGHT KIDNEY: 10.9 x 8.0 x 5.0 cm FINDINGS: LIVER: Normal echotexture without focal lesion or ductal dilatation. COMMON DUCT: No intraluminal mass or stone visualized. GALLBLADDER: There are multiple small stones in the gallbladder. No wall thickening or pericholecystic fluid is pr esent. Sonographic Sullivan sign is negative. PANCREAS: The visualized portions are within normal limits. RIGHT KIDNEY: No evidence of hydronephrosis, stone, or mass. CONCLUSION: 1. Cholelithiasis. No additional findings are identified to suggest acute cholecystitis. 2. Remainder of the examination is within normal limits. Earnest Miramontes MD on January 21, 2017 at 4:14 Board Certified Radiologist. This report was verified electronically.
[2017-01-21 04:18] LABS: INDIRECT BILIRUBIN 0.2 MG/DL (0.0-0.8); TOTAL BILIRUBIN ADULT 0.3 MG/DL (0.2-1.0)
[2017-01-21] MEDS ORDERED: ZOFR4TAB3 SL (04:37)
[2017-01-21] MEDS ORDERED: SODIUM CHLOR 0.9% 1000 ML INJ 1,000 ML IV ONE (04:45)
[2017-01-21] MEDS ORDERED: CEPH-460 PO (20:17)
== END 2017-01-21 05:01 | disposition home or self-care (01) ==
LOC: NEPE 02:34
DX: K80.20 Calculus of gallbladder without cholecystitis without obstruction (principal); F41.9 Anxiety disorder, unspecified; F32.9 Major depressive disorder, single episode, unspecified; Z79.899 Other long term (current) drug therapy; Z88.0 Allergy status to penicillin; Z88.8 Allergy status to other drugs, medicaments and biological substances
CPT/HCPCS: 76705; 80048; 80076; 83690; 85025; 85610; 85730; 96374; 96375; 99285; J2270; J2405

== ENCOUNTER 2017-01-21 15:54 | Emergency (ER) | payer OTHER ==
[~2017-01-21 15:54] MED LIST changes: +ZOFR4TAB3 SL
[2017-01-21] MEDS ORDERED: IOHEXOL 350 MG/ML 10 ML VIAL (for RAD DIAG) IVCONTRAST ONE (15:55)
[2017-01-21 15:56] VITALS: BP 116/76; PULSE 72; RESP 15; TEMP 98.4; O2SAT 98
--- NOTE | 2017-01-21 16:12 | PD ---
Physical Exam Time Seen by Provider: 16:11 Narrative 26yo F c/o worsening abd pain after being dc this morning w/ dx of gallstones. Patient seen in triage. VS reviewed. Patient awaiting bed placement. Data Data Last Documented VS Vital Signs Date Time Temp Pulse Resp B/P (MAP) Pulse Ox O2 Delivery O2 Flow Rate FiO2 01/21/17 15:56 98.4 72 15 116/76 (89) 98 MDM Supervised Visit with LEONILA: Pilar Cabrera Jan 21, 2017 16:12
--- NOTE | 2017-01-21 17:26 | PD ---
HPI Chief Complaint: GI Complaint Time Seen by Provider: 17:25 Travel History International Travel<30 days: No Contact w/Intl Traveler<30days: No Traveled to known affect area: No History of Present Illness HPI 26 year-old female with no significant medical history presents to emergency department for the second time today for evaluation of right upper quadrant abdominal pain. Patient was discharged earlier today for this with diagnosis of gallstones, no inflammation noted. Agent states the pain has returned. It is sharp, stabbing, 8 out of 10. Mild nausea. Fever but the patient does feel chilled here in the emergency department. Patient denies any bowel or bladder changes. No other symptoms to report. PFSH Past Medical History Hx Anticoagulant Therapy: No Anxiety: Yes Depression: Yes Cardiovascular Problems: No Chemotherapy: No Cerebrovascular Accident: No Diabetes: No Diminished Hearing: No Musculoskeletal: Yes (TMJ) Respiratory: No Immunizations Current: No : 3 Para: 2 Miscarriage: 1 Past Surgical History Section: Yes Hysterectomy: No Oral Surgery: Yes (TMJ) Social History Alcohol Use: No Tobacco Use: No Substance Use: No Allergies-Medications (Allergen,Severity, Reaction): Coded Allergies: penicillin G (Verified Allergy, Intermediate, Rash, 01/21/17) tretinoin (Verified Allergy, Intermediate, swelling, 01/21/17) Reported Meds & Prescriptions Reported Meds & Active Scripts Active Keflex (Cephalexin) 500 Mg Cap 500 Mg PO Q12H 7 Days Zofran Odt (Ondansetron Odt) 4 Mg Tab 4 Mg SL Q12HR PRN Oxycodone-Acetaminophen 5-325 mg Tab 1-2 Tab PO Q6HR PRN Review of Systems Except as stated in HPI: all other systems reviewed are Neg Physical Exam Narrative GENERAL: Well-nourished female patient, in no acute distress SKIN: Focused skin assessment warm/dry. HEAD: Atraumatic. Normocephalic. EYES: Pupils equal and round. No scleral icterus. No injection or drainage. ENT: No nasal bleeding or discharge. Mucous membranes pink and moist. NECK: Trachea midline. No JVD. CARDIOVASCULAR: Regular rate and rhythm. No murmur appreciated. RESPIRATORY: No accessory muscle use. Clear to auscultation. Breath sounds equal bilaterally. GASTROINTESTINAL: Abdomen soft, distended. Right upper quadrant tenderness to palpation. No rebound tenderness. No guarding.. Hepatic and splenic margins not palpable. MUSCULOSKELETAL: No obvious deformities. No clubbing. No cyanosis. No edema. NEUROLOGICAL: Awake and alert. No obvious cranial nerve deficits. Motor grossly within normal limits. Normal speech. Data Data Last Documented VS Vital Signs Date Time Temp Pulse Resp B/P (MAP) Pulse Ox O2 Delivery O2 Flow Rate FiO2 01/21/17 18:46 16 01/21/17 15:56 98.4 72 116/76 (89) 98 Orders Orders Urinalysis - C+S If Indicated (01/21/17 17:29) Ed Urine Pregnancytest Poc (01/21/17 17:29) Iv Access Insert/Monitor (01/21/17 17:29) Ct Abd/Pel W Iv Contrast(Rout) (01/21/17 ) Ketorolac Inj (Toradol Inj) (01/21/17 17:30) Sodium Chlor 0.9% 1000 Ml Inj (Ns 1000 M (01/21/17 17:30) Urine Culture (01/21/17 17:50) Ceftriaxone Inj (Rocephin Inj) (01/21/17 18:45) Iohexol 350 Inj (Omnipaque 350 Inj) (01/21/17 15:55) Labs Laboratory Tests Test 01/21/17 17:50 Urine Color DARK-YELLOW Urine Turbidity HAZY Urine pH 6.0 Urine Specific [place] 1.030 Urine Protein 30 mg/dL Urine Glucose (UA) NEG mg/dL Urine Ketones NEG mg/dL Urine Occult Blood MOD Urine Nitrite NEG Urine Bilirubin NEG Urine Urobilinogen 4.0 MG/DL Urine Leukocyte Esterase MOD Urine RBC 2 /hpf Urine WBC 34 /hpf Urine Squamous Epithelial Cells 3 /hpf Urine Renal Epithelial Cells <1 /hpf Urine Bacteria OCC /hpf Urine Mucus MOD /lpf Microscopic Urinalysis Comment CULTURE INDICATED MDM Medical Decision Making Medical Screen Exam Complete: Yes Emergency Medical Condition: Yes Medical Record Reviewed: Yes Differential Diagnosis Biliary colic versus cholecystitis versus cholelithiasis versus epigastric pain Narrative Course 26-year-old female presents to the emergency department for evaluation of recurrent right upper quadrant pain. Patient was diagnosed with cholelithiasis earlier today. Her sound was done at that time. Pain has returned and persist. Lab work will not be repeated, however urine is added. CT of the abdomen and pelvis shows 1. There is thickening of the gallbladder wall characteristic of chronic gallbladder disease. Gallstones were noted on patient's recent ultrasound. No biliary tract obstruction is seen. 2. Small umbilical hernia containing mesenteric fat. This is discussed with the patient. Laboratory Tests Test 01/21/17 17:50 Urine Color DARK-YELLOW Urine Turbidity HAZY Urine pH 6.0 Urine Specific [place] 1.030 Urine Protein 30 mg/dL Urine Glucose (UA) NEG mg/dL Urine Ketones NEG mg/dL Urine Occult Blood MOD Urine Nitrite NEG Urine Bilirubin NEG Urine Urobilinogen 4.0 MG/DL Urine Leukocyte Esterase MOD Urine RBC 2 /hpf Urine WBC 34 /hpf Urine Squamous Epithelial Cells 3 /hpf Urine Renal Epithelial Cells <1 /hpf Urine Bacteria OCC /hpf Urine Mucus MOD /lpf Microscopic Urinalysis Comment CULTURE INDICATED Patient is treated for UTI. She is encouraged to follow-up with her primary care provider seek general surgery evaluation. At this time she is in absolutely no pain following Toradol administration. I encouraged her to take her pain medication and antibiotic that has already prescribed to her. She is in agreement with this clinic care. She'll return immediately with any acute worsening of symptoms. Diagnosis Primary Impression: Biliary colic Additional Impression: UTI (urinary tract infection) Qualified Codes: N30.00 - Acute cystitis without hematuria Referrals: Administrative Sales Assistant Primary Care Physician Patient Instructions: Biliary Colic (ED), General Instructions Additional Instructions: Avoid fatty foods Follow-up with general surgery for further evaluation of your gallbladder Continue pain medication as already prescribed Return immediately to the emergency department with any acute worsening of symptoms Med/Other Pt SpecificInfo: Prescription(s) given Scripts Cephalexin (Keflex) 500 Mg Cap 500 MG PO Q12H for Infection for 7 Days, CAP 0 Refills Prov: Jaqueline Lizarraga 01/21/17 Disposition: 01 DISCHARGE HOME Condition: Stable Jaqueline Lizarraga Jan 21, 2017 17:26
[2017-01-21] MEDS ORDERED: SODIUM CHLOR 0.9% 1000 ML INJ 1,000 ML IV ONE (17:30)
[2017-01-21] MEDS ORDERED: KETOROLAC TROMETHAMINE 30 MG/ML (IVP) VIAL IV PUSH ONE (17:30)
[2017-01-21 18:34] LABS: BACTERIA, URINE OCC /hpf; BLOOD, URINE MOD (NEG); COMMENT (UR) CULTURE INDICATED; CULTURE IF INDICATED CULTURE INDICATED; GLUCOSE,URINE NEG (NEG); KETONE, URINE NEG (NEG); MUCUS URINE MOD /lpf (OCC); NITRITE,URINE NEG (NEG); RENAL EPITHELIAL CELLS <1 /hpf; SQUAMOUS EPITHELIAL CELL URINE 3 /hpf (0-5); URINE COLOR DARK-YELLOW (YELLW/STRAW)
[2017-01-21] MEDS ORDERED: cefTRIAXone INJ 1,000 MG in SODIUM CHLORIDE 0.9% INJ 100 ML IV ONE (18:45)
[2017-01-21 18:46] VITALS: RESP 16
--- NOTE | 2017-01-21 20:08 | RADRPT ---
EXAM DATE/TIME: 01/21/2017 19:45 [facility] COMPARISON: US ABDOMEN - GALLBLADDER, January 21, 2017, 3:42. CT ABDOMEN & PELVIS W CONTRAST, June 19, 2014, 2 2:49. INDICATIONS : Abdomen pain in right upper region. IV CONTRAST: 85 cc Omnipaque 350 (iohexol) IV ORAL CONTRAST: No oral contrast ingested. RADIATION DOSE: 10.19 CTDIvol (mGy) MEDICAL HISTORY : None SURGICAL HISTORY : section. ENCOUNTER: Initial ACUITY: 1 day PAIN SCALE: 9/10 LOCATION: Right upper quadrant TECHNIQUE: Volumetric scanning of the abdomen and pelvis was performed. Using automated exposure control and ad justment of the mA and/or kV according to patient size, radiation dose was kept as low as reasonably achievable to obtain optimal diagnostic quality images. DICOM format image data is available electro nically for review and comparison. FINDINGS: LOWER LUNGS: The visualized lower lungs are clear. LIVER: Homogeneous density without lesion. There is no dilation of the biliary tree. No calcified gallston es. However there is thickening of the gallbladder wall. Gallstones were noted on patient's recent ul trasound. SPLEEN: Normal size without lesion. PANCREAS: Within normal limits. KIDNEYS: Normal in size and shape. There is no mass, stone or hydronephrosis. ADRENAL GLANDS: Within normal limits. VASCULAR: There is no aortic aneurysm. BOWEL/MESENTERY: The stomach, small bowel, and colon demonstrate no acute abnormality. There is no free intraperitone al air or fluid. No inflammatory changes ABDOMINAL WALL: Small umbilical hernia containing mesenteric fat. RETROPERITONEUM: There is no lymphadenopathy. BLADDER: No wall thickening or mass. REPRODUCTIVE: Within normal limits. INGUINAL: There is no lymphadenopathy or hernia. MUSCULOSKELETAL: Within normal limits for patient age. CONCLUSION: 1. There is thickening of the gallbladder wall characteristic of chronic gallbladder disease. Gallsto erum were noted on patient's recent ultrasound. No biliary tract obstruction is seen. 2. Small umbilical hernia containing mesenteric fat. Jas Murdock MD on January 21, 2017 at 20:02 Board Certified Radiologist. This report was verified electronically.
[2017-01-21] MEDS ORDERED: CEPH-460 PO (20:17)
[2017-01-21 20:42] VITALS: BP 120/74
== END 2017-01-21 21:00 | disposition home or self-care (01) ==
LOC: NEPD 15:54
DX: K80.50 Calculus of bile duct without cholangitis or cholecystitis without obstruction (principal); N39.0 Urinary tract infection, site not specified; K80.80 Other cholelithiasis without obstruction; K42.9 Umbilical hernia without obstruction or gangrene; F41.9 Anxiety disorder, unspecified; F32.9 Major depressive disorder, single episode, unspecified; Z79.899 Other long term (current) drug therapy; Z88.0 Allergy status to penicillin; Z88.8 Allergy status to other drugs, medicaments and biological substances
CPT/HCPCS: 74177; 81001; 84703; 87086; 96361; 96365; 96366; 96375; 99285; J0696; J1885; J7030; Q9967

== ENCOUNTER 2017-02-18 13:13 | Inpatient (IN) | payer MEDICAID, OTHER ==
[~2017-02-18] VITALS: Ht 165.1 cm; Wt 93.0 kg
[~2017-02-18 13:13] MED LIST changes: +CEPH-460 PO; -DOXY100T PO; -IBUP-232 PO; -IBUP600 PO; -MACR100C2 PO; -METH-703 PO; -PERC5TAB12 PO
[2017-02-18 13:15] VITALS: BP 137/83; PULSE 69; RESP 15; TEMP 98.4; O2SAT 98
--- NOTE | 2017-02-18 13:23 | PD ---
HPI . RUQ pain and hx of cholelithiasis Chief Complaint: Abdominal Pain Time Seen by Provider: 13:22 Travel History International Travel<30 days: No Contact w/Intl Traveler<30days: No Traveled to known affect area: No History of Present Illness HPI 26-year-old female who is approximately 7 weeks here with complaints of call stone attack. Patient tells me that she was diagnosed with gallstones and she thinks that her gallbladder may need to be taken out. She is complaining of pain in her right upper quadrant radiating to her back. She tells me that she has some nausea and she vomited one time today. He rates the pain as 50/10. PFSH Past Medical History Hx Anticoagulant Therapy: No Anxiety: Yes Depression: Yes Cardiovascular Problems: No Chemotherapy: No Cerebrovascular Accident: No Diabetes: No Diminished Hearing: No Musculoskeletal: Yes (TMJ) Psychiatric: Yes Respiratory: No Immunizations Current: No ?: Unknown : 3 Para: 2 Miscarriage: 1 Past Surgical History Section: Yes Hysterectomy: No Oral Surgery: Yes (TMJ) Social History Alcohol Use: No Tobacco Use: Yes (3 cigarrettes per day ) Substance Use: No Allergies-Medications (Allergen,Severity, Reaction): Coded Allergies: penicillin G (Verified Allergy, Intermediate, Rash, 02/18/17) tretinoin (Verified Allergy, Intermediate, swelling, 02/18/17) Reported Meds & Prescriptions Reported Meds & Active Scripts Active No Active Prescriptions or Reported Medications Review of Systems General / Constitutional: No: Fever Eyes: No: Visual changes HENT: No: Headaches Cardiovascular: No: Chest Pain or Discomfort Respiratory: No: Shortness of Breath Gastrointestinal: Positive: Nausea, Vomiting, Abdominal Pain Genitourinary: No: Dysuria Musculoskeletal: No: Pain Skin: No Rash Neurologic: No: Weakness Psychiatric: No: Depression Endocrine: No: Polydipsia Hematologic/Lymphatic: No: Easy Bruising Physical Exam Narrative GENERAL: AAO x 3, no acute distress, Well-nourished, well-developed patient. SKIN: Warm and dry. No visible rashes or bruising. HEAD: Normocephalic and atraumatic. EYES: No scleral icterus. No injection or drainage. EOM intact, PERRLA ENT: No nasal drainage noted. Mucous membranes pink. Airway patent. NECK: Supple, trachea midline. No JVD. CARDIOVASCULAR: Regular rate and rhythm without murmurs, gallops, or rubs. RESPIRATORY: Breath sounds equal bilaterally. No accessory muscle use. No rhonchi or rales. GASTROINTESTINAL: Abdomen soft, + RUQ tenderness, no rebound, + pittman sign EXTREMITIES: No cyanosis or edema. BACK: No obvious deformity. NEURO: CN II-12 intact PSYCH: AAO x 3, normal affect. Data Data Last Documented VS Vital Signs Date Time Temp Pulse Resp B/P (MAP) Pulse Ox O2 Delivery O2 Flow Rate FiO2 02/18/17 16:35 71 16 123/58 (79) 100 Room Air 02/18/17 13:15 98.4 Orders Orders Complete Blood Count With Diff (02/18/17 13:24) Comprehensive Metabolic Panel (02/18/17 13:24) Lipase (02/18/17 13:24) Ed Urine Pregnancytest Poc (02/18/17 13:24) Ketorolac Inj (Toradol Inj) (02/18/17 14:00) Us Abdomen Gallbladder (02/18/17 ) Admit To Inpatient (02/18/17 ) Code Status (02/18/17 16:54) Vital Signs (Adult) Q4H (02/18/17 16:54) Activity Oob Ad Christen (02/18/17 16:54) Intake + Output TITO.QSHIFT (02/18/17 16:54) Diet Clear Liquid (02/18/17 Dinner) Sodium Chloride 0.9% Flush (Ns Flush) (02/18/17 17:00) Sodium Chloride 0.9% Flush (Ns Flush) (02/18/17 21:00) Ondansetron Inj (Zofran Inj) (02/18/17 17:00) Famotidine (Pepcid) (02/18/17 21:00) Docusate Sodium (Colace) (02/18/17 21:00) Prothrombin Time / Inr (Pt) (02/19/17 06:00) Resp Incentive Spirometry (02/18/17 ) Post-Op Orders (For Pharmacy) (Post-Op O (02/18/17 17:00) Oxycodone-Acetamin 5-325 Mg (Percocet (02/18/17 17:00) Morphine Inj (Morphine Inj) (02/18/17 17:00) Naloxone Inj (Narcan Inj) (02/18/17 17:00) Scd Bilateral/Knee High TITO.QSHIFT (02/18/17 16:54) Inpatient Certification (02/18/17 ) Npo After Midnight W/ Po Meds (02/18/17 Dinner) Consent (02/18/17 16:54) Admit Order (Ed Use Only) (02/18/17 17:07) Labs Laboratory Tests Test 02/18/17 13:20 White Blood Count 12.4 TH/MM3 Red Blood Count 4.71 MIL/MM3 Hemoglobin 12.4 GM/DL Hematocrit 38.7 % Mean Corpuscular Volume 82.1 FL Mean Corpuscular Hemoglobin 26.3 PG Mean Corpuscular Hemoglobin Concent 32.0 % Red Cell Distribution Width 15.6 % Platelet Count 335 TH/MM3 Mean Platelet Volume 8.9 FL Neutrophils (%) (Auto) 69.0 % Lymphocytes (%) (Auto) 24.0 % Monocytes (%) (Auto) 4.9 % Eosinophils (%) (Auto) 1.3 % Basophils (%) (Auto) 0.8 % Neutrophils # (Auto) 8.5 TH/MM3 Lymphocytes # (Auto) 3.0 TH/MM3 Monocytes # (Auto) 0.6 TH/MM3 Eosinophils # (Auto) 0.2 TH/MM3 Basophils # (Auto) 0.1 TH/MM3 CBC Comment DIFF FINAL Differential Comment Blood Urea Nitrogen 8 MG/DL Creatinine 0.74 MG/DL Random Glucose 89 MG/DL Total Protein 8.4 GM/DL Albumin 3.7 GM/DL Calcium Level 8.9 MG/DL Alkaline Phosphatase 264 U/L Aspartate Amino Transf (AST/SGOT) 163 U/L Alanine Aminotransferase (ALT/SGPT) 240 U/L Total Bilirubin 1.3 MG/DL Sodium Level 139 MEQ/L Potassium Level 3.9 MEQ/L Chloride Level 107 MEQ/L Carbon Dioxide Level 25.7 MEQ/L Anion Gap 6 MEQ/L Estimat Glomerular Filtration Rate 96 ML/MIN Lipase 143 U/L MDM Medical Decision Making Medical Screen Exam Complete: Yes Emergency Medical Condition: Yes Medical Record Reviewed: Yes Differential Diagnosis Cholelithiasis, cholecystitis, choledocholithiasis, pancreatitis Narrative Course 26-year-old female here with complaints of gallstone attack. On examination she appears to have significant right upper quadrant tenderness. She may possibly have acute cholecystitis and may possibly require cholecystectomy. Labs and ultrasound have been ordered. Laboratory Tests Test 02/18/17 13:20 White Blood Count 12.4 TH/MM3 Red Blood Count 4.71 MIL/MM3 Hemoglobin 12.4 GM/DL Hematocrit 38.7 % Mean Corpuscular Volume 82.1 FL Mean Corpuscular Hemoglobin 26.3 PG Mean Corpuscular Hemoglobin Concent 32.0 % Red Cell Distribution Width 15.6 % Platelet Count 335 TH/MM3 Mean Platelet Volume 8.9 FL Neutrophils (%) (Auto) 69.0 % Lymphocytes (%) (Auto) 24.0 % Monocytes (%) (Auto) 4.9 % Eosinophils (%) (Auto) 1.3 % Basophils (%) (Auto) 0.8 % Neutrophils # (Auto) 8.5 TH/MM3 Lymphocytes # (Auto) 3.0 TH/MM3 Monocytes # (Auto) 0.6 TH/MM3 Eosinophils # (Auto) 0.2 TH/MM3 Basophils # (Auto) 0.1 TH/MM3 CBC Comment DIFF FINAL Differential Comment Blood Urea Nitrogen 8 MG/DL Creatinine 0.74 MG/DL Random Glucose 89 MG/DL Total Protein 8.4 GM/DL Albumin 3.7 GM/DL Calcium Level 8.9 MG/DL Alkaline Phosphatase 264 U/L Aspartate Amino Transf (AST/SGOT) 163 U/L Alanine Aminotransferase (ALT/SGPT) 240 U/L Total Bilirubin 1.3 MG/DL Sodium Level 139 MEQ/L Potassium Level 3.9 MEQ/L Chloride Level 107 MEQ/L Carbon Dioxide Level 25.7 MEQ/L Anion Gap 6 MEQ/L Estimat Glomerular Filtration Rate 96 ML/MIN Lipase 143 U/L US reviewed. Dr Johns discussed the case with Dr. Holcomb. Patient has elevated LFTs and is symptomatic. She would benefit from removal of the gallbladder. She last ate around 12 pm today. I have discussed the case with Dr. Holcomb, who will admit patient and perform surgery. He will resume care of this patient. Diagnosis Primary Impression: Cholecystitis Admitting Information Admitting Physician Requests: Admit Scripts No Active Prescriptions or Reported Meds Condition: Stable Kandace Ewing Feb 18, 2017 13:23
[2017-02-18 13:49] LABS: AUTOMATED NEUTROPHIL # 8.5 TH/MM3 (1.8-7.7); BASOPHIL # 0.1 TH/MM3 (0-0.2); BASOPHIL % 0.8 % (0.0-2.0); EOSINOPHIL # 0.2 TH/MM3 (0-0.4); EOSINOPHIL % 1.3 % (0.0-4.0); HEMATOCRIT 38.7 % (35.0-46.0); HEMO FLAGS DIFF FINAL; MEAN CELL VOLUME 82.1 FL (80.0-100.0); MEAN CORPUSCULAR HEMOGLOBIN 26.3 PG (27.0-34.0); MONO % 4.9 % (0.0-8.0); PLATELET COUNT 335 TH/MM3 (150-450); RED BLOOD COUNT 4.71 MIL/MM3 (4.00-5.30); RED CELL DISTRIBUTION WIDTH 15.6 % (11.6-17.2); WHITE BLOOD COUNT 12.4 TH/MM3 (4.0-11.0)
[2017-02-18] MEDS ORDERED: KETOROLAC TROMETHAMINE 30 MG/ML (IVP) VIAL IV PUSH ONE (14:00)
[2017-02-18 14:04] LABS: ALKALINE PHOSPHATASE 264 U/L (45-117); TOTAL BILIRUBIN ADULT 1.3 MG/DL (0.2-1.0)
[2017-02-18 14:08] LABS: ALT (GPT) 240 U/L (10-53); ANION GAP 6 MEQ/L (5-15); AST (GOT) 163 U/L (15-37); BICARBONATE 25.7 MEQ/L (21.0-32.0); BLOOD UREA NITROGEN 8 MG/DL (7-18); CHLORIDE 107 MEQ/L (98-107); GLOMERULAR FILTRATION RATE 96 ML/MIN (>89); POTASSIUM 3.9 MEQ/L (3.5-5.1); SODIUM (NA) 139 MEQ/L (136-145)
--- NOTE | 2017-02-18 15:15 | RADRPT ---
EXAM DATE/TIME: 02/18/2017 14:41 [facility] COMPARISON: US ABDOMEN - GALLBLADDER, January 21, 2017, 3:42. INDICATIONS : Gallstones. MEDICAL HISTORY : Gallstones. Depression. Anxiety. Tobacco use. SURGICAL HISTORY : section. Temporomandibular joint surgery. D&C. ENCOUNTER: Subsequent ACUITY: 2 days PAIN SCORE: 8/10 LOCATION: Right upper quadrant MEASUREMENTS: LIVER: 17.4 cm length COMMON DUCT: 7 mm RIGHT KIDNEY: 10.6 x 5.5 x 4.5 cm FINDINGS: LIVER: Normal echotexture without focal lesion or ductal dilatation. COMMON DUCT: No intraluminal mass or stone visualized. The duct does appear mildly dilated. GALLBLADDER: There is sludge evident layering in the dependent portion of the gallbladder. No significant gallblad flaca wall thickening or pericholecystic fluid is identified. PANCREAS: The visualized portions are within normal limits. RIGHT KIDNEY: No evidence of hydronephrosis, stone, or mass. CONCLUSION: 1. There is sludge and punctate stones layering along the dependent portion of the gallbladder. 2. The common duct is mildly dilated at 7 mm. 3. No significant gallbladder wall thickening or pericolic cystic fluid. Lucio Smith MD on February 18, 2017 at 15:12 Board Certified Radiologist. This report was verified electronically.
[2017-02-18 16:35] VITALS: BP 123/58; PULSE 71; RESP 16; O2SAT 100
[2017-02-18] MEDS ORDERED: NALOXONE HCL 0.4 MG/ML AMP IV PUSH PRN (17:00)
[2017-02-18] MEDS ORDERED: ONDANSETRON HCL 4 MG/2 ML VIAL IV PUSH PRN (17:00)
[2017-02-18] MEDS ORDERED: SODIUM CHLORIDE 0.9% FLUSH 10 ML FLUSH IV FLUSH PRN (17:00)
[2017-02-18] MEDS ORDERED: Post-op Orders (for Pharmacy) MISC XX ONE (17:00)
[2017-02-18 18:20] VITALS: O2SAT 100
[2017-02-18 18:27] VITALS: BP 125/65
[2017-02-18 20:00] VITALS: BP 100/55; PULSE 62; RESP 20; TEMP 98.4; O2SAT 99
[2017-02-18] MEDS: FAMOTIDINE 20 MG TAB PO SCH (22:16)
[2017-02-18] MEDS: DOCUSATE SODIUM 100 MG CAP PO SCH (22:16)
[2017-02-18] MEDS: SODIUM CHLORIDE 0.9% FLUSH 10 ML FLUSH IV FLUSH SCH (22:17)
[2017-02-18] MEDS ORDERED: LACTATED RINGER'S 1000 ML IV PRN (23:45)
[2017-02-19] VITALS (7 sets, daily range): BP systolic 96–138; BP diastolic 55–91; PULSE 57–74; RESP 17–20; TEMP 97.6–98.8; O2SAT 95–99
[2017-02-19 06:56] LABS: PROTHROMBIN TIME - PATIENT 10.9 SEC (9.8-11.6)
[2017-02-19] MEDS: SODIUM CHLORIDE 0.9% FLUSH 10 ML FLUSH IV FLUSH SCH ×2 (08:19→19:51)
[2017-02-19] MEDS: DOCUSATE SODIUM 100 MG CAP PO SCH ×2 (08:20→19:50)
[2017-02-19] MEDS: FAMOTIDINE 20 MG TAB PO SCH ×2 (08:20→19:50)
[2017-02-19] MEDS ORDERED: FAMOTIDINE 20 MG/2 ML VIAL ONE (09:27)
[2017-02-19] MEDS ORDERED: DEXAMETHASONE SOD PHOS 4 MG/ML VIAL ONE (09:27)
[2017-02-19] MEDS ORDERED: APREPITANT 40 MG CAP ONE (09:27)
[2017-02-19] MEDS ORDERED: ACETAMINOPHEN 1000 MG/100 ML 100 ML IV ONE (09:27)
[2017-02-19] MEDS ORDERED: ceFAZolin 2 GM PREMIX 50 ML ONE (09:30)
[2017-02-19] MEDS ORDERED: INFLUENZA VIRUS VACCINE (QUADRIVALENT) 0.5 ML SYR IM ONE (10:00)
[2017-02-19] MEDS ORDERED: DEXAMETHASONE SOD PHOS 4 MG/ML VIAL IV ONE (12:00)
[2017-02-19] MEDS ORDERED: MIDAZOLAM HCL 2 MG/2 ML VIAL IV ONE (12:00)
[2017-02-19] MEDS ORDERED: ROCURONIUM INJ 50 MG/5 ML SYRINGE IV PUSH ONE (12:00)
[2017-02-19] MEDS ORDERED: ONDANSETRON HCL 4 MG/2 ML VIAL IV PUSH ONE (12:00)
[2017-02-19] MEDS ORDERED: LIDOCAINE HCL 1% PF 5 ML AMPULE OTHER ONE (12:00)
[2017-02-19] MEDS ORDERED: PROPOFOL 200 MG/20 ML AMP IV ONE (12:00)
[2017-02-19] MEDS ORDERED: NEOSTIGMINE 3 MG/3 ML SYR IV ONE (12:00)
[2017-02-19] MEDS ORDERED: GLYCOPYRROLATE 1 MG/5 ML SYRINGE IV PUSH ONE (12:00)
[2017-02-19] MEDS ORDERED: *ONDANSETRON 4 MG VIAL PERIprocedural Use ONLY ONE ×2 (12:47)
[2017-02-19] MEDS ORDERED: DO NOT ADM ANY ANTICOAGULANT DRUGS PRN (13:00)
[2017-02-19] MEDS: oxyCODONE/ACETAMINOPHEN 5 MG/325 MG TAB PO PRN ×2 (13:27→19:50)
--- NOTE | 2017-02-19 13:28 | MP ---
cc: DENZEL PACE MD DATE OF SURGERY 02/19/2017 PREOPERATIVE DIAGNOSIS Acute cholecystitis superimposed with chronic biliary colic, cholelithiasis. POSTOPERATIVE DIAGNOSIS Acute cholecystitis superimposed with chronic biliary colic, cholelithiasis. OPERATIVE PROCEDURE Laparoscopic cholecystectomy SURGEON Dr. Pace ANESTHESIA General ESTIMATED BLOOD LOSS 30 cc PROCEDURE IN DETAIL The patient prepped and draped in the usual fashion. A small supraumbilical vertical incision was made, deepened down to fascia, fascia opened under direct vision. The peritoneum is entered and Villanueva cannula placed. The abdomen insufflated with CO2 and the patient placed in reverse Trendelenburg with a left tilt. The abdomen explored in the quadrants with a zero camera. No other abnormalities. The liver appears to be normal. All the other organs are normal on visual inspection. Subxiphoid and two right upper quadrant ports were placed and then the gallbladder is grasped with an alligator grasper and elevated. A [place] dissector was used to dissect the cystic duct and cystic artery. Both are triply ligated and divided once the gallbladder is elevated from the plate. Then the gallbladder is taken off the liver bed with a J-hook and delivered through the subumbilical incision using an EndoCatch bag. The area irrigated saline. Meticulous hemostasis assured. Instruments withdrawn. Incisions closed with 0 Vicryl and 4-0 Monocryl. The patient tolerated the procedure well. Denzel WEST/LIANG /1:04 PM /1:22 PM
[2017-02-19] MEDS: MORPHINE SULFATE 4 MG/ML INJ IV PUSH PRN ×2 (18:48→22:51)
[2017-02-20 00:38] VITALS: BP 113/64; PULSE 60; RESP 18; TEMP 96.8; O2SAT 95
[2017-02-20 04:00] VITALS: BP 124/76; PULSE 55; RESP 18; TEMP 97.3; O2SAT 96
[2017-02-20] MEDS: oxyCODONE/ACETAMINOPHEN 5 MG/325 MG TAB PO PRN (04:56)
[2017-02-20 08:00] VITALS: BP 115/72; PULSE 56; RESP 18; TEMP 97.4; O2SAT 96
[2017-02-20] MEDS: FAMOTIDINE 20 MG TAB PO SCH (08:54)
[2017-02-20] MEDS: DOCUSATE SODIUM 100 MG CAP PO SCH (08:54)
[2017-02-20] MEDS: SODIUM CHLORIDE 0.9% FLUSH 10 ML FLUSH IV FLUSH SCH (09:00)
[2017-02-20 09:10] VITALS: O2SAT 97
[2017-02-20] MEDS ORDERED: PERC5TAB12 PO (11:57)
[2017-02-20 12:00] VITALS: BP 111/67; PULSE 64; RESP 18; TEMP 96.8; O2SAT 100
--- NOTE | 2017-02-27 19:52 | MH ---
cc: MD KATELYNN,DENZEL DATE OF ADMISSION 02/18/2017 Note: This was an H&P that was a short-form and since then has disappeared from the charts so I am dictating the same. HISTORY OF PRESENT ILLNESS A 26-year-old female. She is about 7-8 weeks and now comes to the hospital with right upper quadrant pain and nausea. The patient has been seen numerous times in this hospital for various other issues and she was referred for cholecystectomy previously but never followed up. At this point I am called to see the patient. PAST MEDICAL HISTORY Is that of a 3, para 2 and one miscarriage. Anxiety, depression. PAST SURGICAL HISTORY section and some oral surgery of temporal mandibular joint. SOCIAL HISTORY The patient does not drink, smokes about three cigarettes per day. Denies illicit drugs. REVIEW OF SYSTEMS ___. The patient complains about her upper abdominal pain. PHYSICAL EXAMINATION GENERAL: Reveals a pleasant. HEENT: Normocephalic, atraumatic. Pupils equally reactive. Extraocular muscles intact. NECK: Supple, bilateral carotid pulses. CHEST: Bilateral breath sounds. HEART: Regular rhythm. ABDOMEN: Soft. Active bowel sounds. No rebound or guarding. No masses. On deep palpation the patient is slightly tender in the right upper quadrant but no masses are noted. Striae gravidarum present over the abdominal wall. PELVIS: Pelvis is normal. EXTREMITIES: Grossly normal limits. NEUROLOGICALLY: The patient is fully intact. BACK: Is normal. IMPRESSION Patient with biliary colic and known cholelithiasis. The patient is being admitted for laparoscopic cholecystectomy. Denzel Holcomb SJ/JENNY /7:20 PM /7:33 PM
== END 2017-02-20 13:47 | disposition home or self-care (01) | DRG 419 ==
LOC: NEPD 13:13 → NEDA 17:10 → N07B 18:37
PROVIDERS: ADMIT Surgery; ATTEND Surgery
PROC: 0FT44ZZ Resection of Gallbladder, Percutaneous Endoscopic Approach (ICD-10-PCS; principal; 2017-02-19 10:18)
DX: K80.62 Calculus of gallbladder and bile duct with acute cholecystitis without obstruction (principal); F32.9 Major depressive disorder, single episode, unspecified; F17.210 Nicotine dependence, cigarettes, uncomplicated; F41.9 Anxiety disorder, unspecified
CPT/HCPCS: 76705; 80053; 83690; 84703; 85025; 85610; 88304; 94150; 96374; J0131; J0690; J1100; J1885; J2250; J2270; J2405; J2710; J3010; J7120; J8501